=== PATIENT | male | born 1950 | race Caucasian/White ===

== ENCOUNTER 2021-07-14 13:11 | Emergency (ER) | payer MEDICARE, OTHER, SELFPAY ==
[2021-07-14 13:14] VITALS: BP 137/73; PULSE 68; RESP 16; TEMP 36.6; O2SAT 98; BMI 24.3
--- NOTE | 2021-07-14 13:26 | DI.US.S_ITS ---
PROCEDURE: US PERIPH VENOUS LOW EXTREM RT INDICATIONS: CALF PAIN 2 WEEKS POST OP TECHNIQUE: Real-time imaging, as well as color and pulse Doppler interrogation, were performed of the lower extremity deep veins from the inguinal ligament to the popliteal fossa. COMPARISON: None. FINDINGS: The common femoral, femoral and popliteal veins are normally compressible, and free of intraluminal thrombus. Color and pulse Doppler demonstrate normal phasic intraluminal flow. There is normal augmentation response to distal compression maneuver. IMPRESSION: No DVT in the right lower extremity. Dictated by: Juan Blake M.D. on 07/14/2021 at 15:30 Approved by: Juan Blake M.D. on 07/14/2021 at 15:30
--- NOTE | 2021-07-14 15:01 | ED.LOWEXIN ---
HPI - Extremity Injury (Lower) <ALEX Purdy - Last Filed: 07/14/21 17:51> General Chief Complaint: Extremity Injury, Lower Stated Complaint: Surgery last week- possible blood clot Time Seen by Provider: 07/14/21 14:53 History of Present Illness HPI Narrative: 71-year-old male presents to the emergency department complaining of a right calf pain which started last night. Patient states it is like a charley horse, he had the spasm of his right calf, this was intense but then subsided, now only has soreness in his right calf. He denies any localized swelling, dependent swelling, sensation changes in his right leg, changes to his gait, any sensation of cold or numbness. Patient had a right nephrectomy on 07/04 21, he was diagnosed with pneumonia 2 days ago and is on azithromycin and a 3rd generation cephalosporin. patient states that he feels better from a pneumonia standpoint, he denies any recent fever, nausea, vomiting, chills, he states that he is concerned about a blood clot because he is flying to [place] tomorrow. Patient states that he has been healing well from his nephrectomy, he has been tolerating p.o. without difficulty, staying hydrated, denies any feeling illness this time. He denies being on any anticoagulants or aspirin. Review of Systems <ALEX Purdy - Last Filed: 07/14/21 17:51> Review of Systems Narrative: General: denies fever, chills, malaise, sweats, fatigue Head/Neck: denies headache, neck pain, dizziness Eyes: denies visual changes, eye pain Cardio: denies chest pain, palpitations, edema Respiratory: denies dyspnea, cough, orthopnea GI: denies abdominal pain, nausea, vomiting, or diarrhea : denies dysuria, hematuria, urinary retention, frequency or incontinence MSK: denies joint pain, muscle weakness, endorses right calf cramp, tenderness to palpation Skin: denies rash, itching, skin lesions or other Neuro: denies numbness, tingling Patient History <ALEX Purdy - Last Filed: 07/14/21 17:51> Substance Use Type: does not use Exam <ALEX Purdy Last Filed: 07/14/21 17:51> Narrative Exam Narrative: Independently reviewed vitals signs and nursing notes. General: cooperative, comfortable, in no acute distress, well developed and well groomed Head: atraumatic, symmetrical facial expressions Neck: supple, atraumatic, without lymphadenopathy. Eyes: pupils equal round and reactive, EOMI, conjunctiva normal Nose: nares patent, no rhinorrhea Mouth/Throat: uvula midline, moist mucus membranes Cardiovascular: regular rate and rhythm, no peripheral edema, warm extremities Respiratory: normal effort, able to speak in complete sentences, no audible wheezing, stridor, or rales. No retractions or tachypnea. GI: abdomen soft, nontender to palpation, nondistended, no masses, no exquisite tenderness with exam, without guarding or rebound. abdominal binder, surgical incision intact without any drainage MSK: moves all extremities, ambulatory w/steady gait, neurovascularly intact, no weakness lucency to changes, no dependent edema, no lower extremity edema, no mass, hematoma, mild tenderness to palpation of his right calf but he denies any pain at this time Skin: brisk capillary refill, no rash, no erythema Neuro: normal speech and cognition, A&O x3, normal tone Psych: mental status is grossly normal, congruent mood, normal affect, pleasant and cooperative Initial Vital Signs Initial Vital Signs: Vital Signs Temperature 97.8 F 07/14/21 13:14 Pulse Rate 68 07/14/21 13:14 Respiratory Rate 16 07/14/21 13:14 Blood Pressure 137/73 07/14/21 13:14 Pulse Oximetry 98 07/14/21 13:14 Course <ALEX Purdy - Last Filed: 07/14/21 17:51> Orders Ordered: ED Orders 07/14/21 13:26 periph venous low extrem rt Stat 07/14/21 13:50 CBC Auto Diff [Complete Blood Count AUTO DIFF] Stat CMP [Comprehensive Metabolic Panel] Stat 07/14/21 15:30 MAG [Magnesium] Stat Vital Signs Vital signs: Vital Signs - 8 hr 07/14/21 16:18 Pulse Rate 68 Respiratory Rate 16 Blood Pressure 132/87 Pulse Oximetry 98 MDM - Extremity Injury (Lower) <ALEX Purdy - Last Filed: 07/14/21 17:51> Lab Data Result diagrams: 07/14/21 13:50 07/14/21 13:50 Labs: Lab Results 07/14/21 07/14/21 07/14/21 Range/Units 13:50 13:50 15:30 WBC 8.6 (4.5-11.0) X10^3/uL RBC 3.65 L (4.5-5.9) X10^6/uL Hgb 11.2 L (13.5-17.5) g/dL Hct 32.1 L (41-53) % MCV 87.9 (80-100) fL MCH 30.6 (26-34) PG MCHC 34.8 (30-36) % RDW 13.8 (11.6-14.8) % Plt Count 337 (150-400) X10^3/uL Neut % (Auto) 56.4 (50-75) % Lymph % (Auto) 28.7 (25-40) % [place] % (Auto) 7.0 (3-14) % Eos % (Auto) 7.2 H (2-4) % Baso % (Auto) 0.7 (0-2) % Neut # (Auto) 4900 (2583-5287) /uL Lymph # (Auto) 2500 (5972-7519) /uL [place] # (Auto) 600 (0-900) /uL Eos # (Auto) 600 H (0-450) /uL Baso # (Auto) 100 (0-100) /uL Sodium 135 L (137-145) mmol/L Potassium 3.9 (3.4-5.1) mmol/L Chloride 106 (98-107) mmol/L Carbon Dioxide 23 (22-32) mmol/L BUN 21 H (9-20) mg/dL Creatinine 1.66 H (0.66-1.25) mg/dL Estimated GFR 41.2 L (>60) mL/min BUN/Creatinine Ratio 12.7 (6-22) Glucose 112 H (80-110) mg/dL Calcium 8.7 (8.4-10.2) mg/dL Magnesium 2.2 (1.6-2.3) mg/dL Total Bilirubin 0.4 (0.2-1.3) mg/dL AST 22 (17-59) IU/L ALT 18 (<50) IU/L Alkaline Phosphatase 108 (38-126) U/L Total Protein 6.6 (6.3-8.2) g/dL Albumin 3.6 (3.5-5.0) g/dL Globulin 3.0 (1.7-4.1) g/dL Albumin/Globulin Ratio 1.2 (1.0-2.8) Imaging Data US - DVT: Radiologist's Impression: PROCEDURE:? US PERIPH VENOUS LOW EXTREM RT ? INDICATIONS:? CALF PAIN 2 WEEKS POST OP ? TECHNIQUE:? Real-time imaging, as well as color and pulse Doppler interrogation, were performed of the lower extremity deep veins from the inguinal ligament to the popliteal fossa.? ? COMPARISON:? None. ? FINDINGS:? The common femoral, femoral and popliteal veins are normally compressible, and free of intraluminal thrombus.? Color and pulse Doppler demonstrate normal phasic intraluminal flow.? There is normal augmentation response to distal compression maneuver. ? ? IMPRESSION:? No DVT in the right lower extremity. ? ? Dictated by: Juan Blake M.D. on 07/14/2021 at 15:30 ? ? Approved by: Juan Blake M.D. on 07/14/2021 at 15:30 ? MDM Narrative Medical decision making narrative: 71-year-old male presents to the emergency department for right calf pain for 1 day, he is status post a right nephrectomy on 07/04/2021 and currently on antibiotics for pneumonia, today is day 2. He has been afebrile, without chills, diaphoresis, nausea vomiting, diarrhea, states that he is feeling well from a pneumonia and nephrectomy standpoint in healing as expected. He is not on any anticoagulants or aspirin. He denies any dizziness, chest pain, shortness of breath, swelling of his lower extremity, weakness, or worsening of his pain. Ultrasound DVT obtained and was negative for DVT in his right lower extremity. Patient does not have any edema or tenderness on exam. His lab work did not show any gross electrolyte abnormalities, no leukocytosis, his creatinine level was 1.6, GFR 41.2, there were no priors to compare to he is status post nephrectomy 10 days ago. Patient's magnesium was 2.2, calcium 8.7, sodium 135. Patient's labs work was shared with patient as he is fine to [place] tomorrow, his primary care provider is in [place]. No other focal problems found on exam. Vital signs were within normal limits, discuss close follow-up with his primary care provider, continue his antibiotics as prescribed, encouraging light activity at home with ambulation to prevent blood clots, hydration, and continuing to heal from his surgery. Patient is appropriate and amenable to discharge home. Vital signs are stable on repeat examination is unremarkable. Patient has been informed of results. Patient has been given strict return to ER precautions for any new or worsening symptoms. Patient understands to follow up closely with outpatient providers as instructed. Patient understands plan and agrees to discharge home. All questions and concerns answered at this time. Discharge Plan Departure Patient Disposition: Home Clinical Impression: Cramp in muscle Instructions: Nocturnal Leg Cramps, DI for Leg Pain Activity Restrictions/Additional Instructions: *You have been diagnosed with a muscle cramp most likely in your lower extremity. Your creatinine today is 1.66 with a GFR of 41.2. You may want to tell that to your surgeon, I do not know which her prior was, I would encourage you to stay hydrated while on antibiotics. Your electrolytes were within normal range today please eat a healthy diet, include salt, your sodium was on the lower end of normal, your potassium was 3.9, you did not have any acidosis, your liver enzymes were within normal range. He did not have any signs of infection, there is no blood clot visible on your ultrasound. Please follow-up with your regular doctors, enjoy your trip back to [place], I hope you feel back to yourself soon. You can apply a topical diclofenac gel to this area, these are available over the counter or lidocaine patch these can be quite helpful for this type of pain. *What to do: *Please continue to take your regular medications as directed. [ ] New medication prescriptions sent to your pharmacy: [ ] [ ] New medication written as a paper prescription [x] No new medications given *Please follow up with your primary care provider in 2-3 days, call for an appointment. Let them know you were seen in the Emergency Department and that we asked that you be seen for follow-up. We will electronically transmit a record of today's note if your PCP is in our system *If you do not have a primary care provider please contact [phone] to establish care with one of the [facility] primary care providers. *Return to Emergency Department if you should have any new, worsening or concerning symptoms, such as [fever greater than 101F, chills, worsening pain, persistent vomiting or other bothersome symptoms]
[2021-07-14 15:44] LABS: Add Manual Diff / Slide Review NO; Basophils Absolute Auto 100 /uL (0-100); Basophils Percent Auto 0.7 % (0-2); Eosinophils Absolute Auto 600 /uL (0-450); Eosinophils Percent Auto 7.2 % (2-4); Hematocrit 32.1 % (41-53); Hemoglobin 11.2 g/dL (13.5-17.5); Lymphocytes Absolute Auto 2500 /uL (1100-4500); Lymphocytes Percent Auto 28.7 % (25-40); Mean Corpuscular HGB Conc 34.8 % (30-36); Mean Corpuscular Hemoglobin 30.6 PG (26-34); Mean Corpuscular Volume 87.9 fL (80-100); Monocytes Absolute Auto 600 /uL (0-900); Neutrophils Absolute Auto 4900 /uL (1500-7000); Neutrophils Percent Auto 56.4 % (50-75); Platelet Count 337 X10^3/uL (150-400); Red Blood Cell Count 3.65 X10^6/uL (4.5-5.9); Red Cell Distribution Width 13.8 % (11.6-14.8); White Blood Cell Count 8.6 X10^3/uL (4.5-11.0)
[2021-07-14 15:54] LABS: Alanine Aminotransferase 18 IU/L (<50); Albumin 3.6 g/dL (3.5-5.0); Albumin Globulin Ratio 1.2 (1.0-2.8); Alkaline Phosphatase 108 U/L (38-126); Aspartate Aminotransferase 22 IU/L (17-59); BUN Creatinine Ratio 12.7 (6-22); Bilirubin Total 0.4 mg/dL (0.2-1.3); Blood Urea Nitrogen 21 mg/dL (9-20); Calcium 8.7 mg/dL (8.4-10.2); Carbon Dioxide 23 mmol/L (22-32); Chloride 106 mmol/L (98-107); Estimated Glomerular Filt Rate 41.2 mL/min (>60); Glucose 112 mg/dL (80-110); HEMOLYSIS < 15 (0-50); Potassium 3.9 mmol/L (3.4-5.1); Sodium 135 mmol/L (137-145); Total Protein 6.6 g/dL (6.3-8.2)
[2021-07-14 16:18] VITALS: BP 132/87; PULSE 68; RESP 16; O2SAT 98
[2021-07-14 16:24] LABS: Magnesium 2.2 mg/dL (1.6-2.3)
== END 2021-07-14 16:19 | disposition home or self-care (01) ==
PROVIDERS: Emergency Provider Nurse Practitioner Critical Care Medicine
DX: R25.2 Cramp and spasm (principal)
CPT/HCPCS: 80053; 83735; 85025; 93971; 99281; 99284